=== PATIENT | female | born 1990 | race African-American/Black ===

== ENCOUNTER 2018-02-10 18:42 | Emergency (ER) | payer SELFPAY ==
[2018-02-10 18:43] VITALS: BP 136/79; PULSE 99; RESP 17; TEMP 36.7; O2SAT 99; BMI 19.3
--- NOTE | 2018-02-10 19:01 | ED.VISSUMM ---
- ER Visit Summary Date of Service: 02/10/18 Chief Complaint: Headache History of Present Illness: The patient is a 27 F who has had 3 days of a headache. She states it has been intermittent. She describes as sharp and dull in the middle of her head. Nothing makes it better or worse. She has nausea without vomiting. She states that she has numbness in the right arm. She states that her vision is blurry. Tried Excedrin without any relief. Denies any history of migraines in the past. No direct trauma or fall. Physical Examination: Vital signs reviewed. HEENT exam unremarkable. Heart is regular rate and rhythm without murmurs. Lungs are clear to auscultation. Abdomen is soft and nontender. Extremities reveal no edema. Skin exam normal. Neurologic exam shows some subjective paresthesias on the right side. Her strength is normal. Test Results: None performed Emergency Department Course and Treatment: Patient was given IV fluids, Compazine, Benadryl and Toradol. She feels much better. Resolution of all symptoms. I do not feel any imaging is necessary and educated the patient as to why she does not need those. She will be discharged with Toradol. She will follow up with her PCP Treatment Plan: [] Disposition: Discharge Impression: Headache This note was generated with [employer] dictation software. It may contain incorrect words, spelling, and punctuation that were not noted in review of the chart prior to signing ED Disposition - Plan for ED Patient: Chief Complaint: Headache Referrals: Care Physician,No Primary [Primary Care Provider] -
[2018-02-10] MEDS: proCHLORPERazine 10 MG/2 ML Vial IV (19:15)
[2018-02-10] MEDS: DiphenhydrAMINE 50 MG/ML Syringe 25 MG IV (19:15)
[2018-02-10] MEDS: 0.9% Normal Saline 1,000 ML 999 ML IV (19:15)
[2018-02-10] MEDS: Ketorolac 30 MG/ML Syringe IV (19:15)
--- NOTE | 2018-02-10 19:53 | ED.DEP ---
ED Disposition - Plan for ED Patient: Disposition: Home or Assisted Living Chief Complaint: Headache Instructions: ED Headache Migraine Prescriptions: Ketorolac [Toradol] 10 mg PO TID PRN PRN #15 tab PRN Reason: Headache Referrals: Care Physician,No Primary [Primary Care Provider] -
[2018-02-10 20:02] VITALS: BP 117/74; PULSE 77; RESP 16
== END 2018-02-10 20:03 | disposition home or self-care (01) ==
PROVIDERS: Emergency Provider Emergency Medicine
DX: R51 Headache (principal); R11.0 Nausea; R20.0 Anesthesia of skin; H53.8 Other visual disturbances; Z72.0 Tobacco use
CPT/HCPCS: 96361; 96374; 96375; 99283; J7030; A4216

== ENCOUNTER → 2018-05-19 13:00 | Outpatient (CLI) | payer MEDICAID, SELFPAY ==
[2018-05-19 20:12] LABS: Chlamydia Trachomatis by PCR Negative (Negative); Neisserai gonorrhoeae by PCR Negative (Negative); Probe Check PASS; Sample Adequacy Control PASS; Specimen Processing Control PASS
[2018-05-26 12:15] LABS: HPV APTIMA, High Risk Negative (Negative)
== END ==
PROVIDERS: Referring Provider Obstetrics & Gynecology; Visit Provider Obstetrics & Gynecology
DX: Z12.4 Encounter for screening for malignant neoplasm of cervix (principal); Z11.3 Encounter for screening for infections with a predominantly sexual mode of transmission
CPT/HCPCS: 87491; 87591; 88175; G0145

== ENCOUNTER → 2018-07-14 09:54 | Outpatient (CLI) | payer MEDICAID, SELFPAY ==
[2018-07-14 11:49] LABS: Absolute Lymphocyte Count 1.15 X10^3/ul (0.83-4.51); Eosinophil# 0.05 X10^3/uL; Eosinophils% 0.9 % (0-5); Hemoglobin 10.7 g/dl (12.0-15.0); Lymphocyte # 1.15 X10^3/ul (4.0); Lymphocyte % 20.3 % (19-41); Mean Corp Hgb Conc 32.4 g/gl (32-36); Mean Corpuscular Hgb 30.8 pg (27.0-32.0); Mean Corpuscular Volume 95.1 fL (81-99); Mean Platelet Vol. 10.1 fl (6.2-12.0); Monocyte# 0.51 X10^3/uL; Neutrophil # 3.95 X10^3/uL (2.7-7.7); Neutrophil % 69.6 % (47-70); Platelet Count 199 K/mm3 (150-450); RBC Distribution Width CV 12.9 % (11.6-14.6); RBC Distribution Width SD 44.5 fl (35.1-43.9); Red Blood Count 3.47 M/mm3 (4.2-5.4); White Blood Count 5.7 K/mm3 (4.4-11.0)
[2018-07-14 11:53] LABS: Color, Urine Yellow (Yellow); Glucose, Dipstick Normal (Normal); Ketone-Dipstick Negative (Negative); Leukocyte Esterase-Dipstick Negative /ul (Negative); Nitrite-Dipstick Negative (Negative); Occult Blood-Urine Negative /ul (Negative); Protein-Dipstick Negative (Negative); Specific Gravity, Urine 1.015 (1.002-1.030); Urine Bilirubin Dipstick Negative (Negative); Urine Clarity Clear (Clear); Urine Urobilinogen Normal (Normal)
[2018-07-14 11:54] LABS: POSITIVE COUNT NO; POSITIVE DIFFERENTIAL NO; POSITIVE MORPHOLOGY NO
[2018-07-14 12:29] LABS: Amphetamine Urine VISTA NEGATIVE (<1000 ng/mL); Barbiturate Urine VISTA NEGATIVE (< 200 ng/mL); Benzodiazepine Urine VISTA NEGATIVE (< 200 ng/mL); Cocaine Urine VISTA NEGATIVE (< 300 ng/mL); Ecstacy Urine VISTA NEGATIVE (< 500 ng/mL); Methadone Urine VISTA NEGATIVE (< 300 ng/mL); PCP Urine VISTA NEGATIVE (< 25 ng/mL); THC Urine VISTA NEGATIVE (< 50 ng/mL); Vista UDS pH Range 7
[2018-07-14 12:53] LABS: HIV - WCH Non-Reactive (Nonreactive); Rubella IgG 286.5 IU/mL
[2018-07-15 03:23] LABS: Prenatal RPR NONREACTIVE (NONREACTIVE)
[2018-07-15 11:04] LABS: HEPATITIS B SURFACE AG Negative (Negative); Hep C Antibodies 0.2 s/co ratio (0.0-0.9)
== END ==
PROVIDERS: Visit Provider Obstetrics & Gynecology
DX: Z34.82 Encounter for supervision of other normal pregnancy, second trimester (principal)
CPT/HCPCS: 36415; 80307; 81002; 84443; 85025; 86703; 86762; 86803; 87340

== ENCOUNTER → 2018-09-27 13:59 | Outpatient (CLI) | payer MEDICAID, SELFPAY | PROVIDERS: Visit Provider Obstetrics & Gynecology | DX: J02.9 Acute pharyngitis, unspecified (principal) | CPT/HCPCS: 87880 ==

== ENCOUNTER → 2018-10-24 | Outpatient (CLI) | payer MEDICAID, SELFPAY ==
[2018-10-24 15:50] LABS: Hematocrit 31.2 % (37-47); Hemoglobin 10.1 g/dl (12.0-15.0); Mean Corp Hgb Conc 32.4 g/gl (32-36); Mean Corpuscular Hgb 29.9 pg (27.0-32.0); Mean Corpuscular Volume 92.3 fL (81-99); Mean Platelet Vol. 10.8 fl (6.2-12.0); Platelet Count 187 K/mm3 (150-450); RBC Distribution Width CV 13.2 % (11.6-14.6); RBC Distribution Width SD 43.5 fl (35.1-43.9); Red Blood Count 3.38 M/mm3 (4.2-5.4); Scan Indicated on CBC? Y/N NO; White Blood Count 7.6 K/mm3 (4.4-11.0)
[2018-10-24 16:02] LABS: Glucose Challenge Gest 1H 50g 125 mg/dL (70-140)
== END | disposition home or self-care (01) ==
LOC: WOBLAB 13:10
PROVIDERS: Visit Provider Obstetrics & Gynecology
DX: Z34.83 Encounter for supervision of other normal pregnancy, third trimester (principal)
CPT/HCPCS: 36415; 82950; 85027

== ENCOUNTER → 2018-11-17 13:45 | Outpatient (CLI) | payer MEDICAID, SELFPAY ==
[2018-11-19 08:39] LABS: HSV 2 IgG < 0.91 index (0.00-0.90)
== END ==
PROVIDERS: Visit Provider Obstetrics & Gynecology
DX: Z11.3 Encounter for screening for infections with a predominantly sexual mode of transmission (principal)
CPT/HCPCS: 36415; 86695; 86696

== ENCOUNTER → 2018-12-19 | Outpatient (CLI) | payer MEDICAID, SELFPAY | END | disposition home or self-care (01) | LOC: LABSPEC 15:13 | PROVIDERS: Visit Provider Obstetrics & Gynecology | DX: Z36.85 Encounter for antenatal screening for Streptococcus B (principal) | CPT/HCPCS: 87081 ==

== ENCOUNTER 2018-12-26 16:18 | Inpatient (IN) | payer MEDICAID, SELFPAY ==
[2018-12-26 12:49] VITALS: BMI 23.2
[2018-12-26] MEDS: Lactated Ringers 1,000 ML 50 ML IV ×3 (16:40→21:03)
[2018-12-26 16:55] LABS: Absolute Lymphocyte Count 1.76 X10^3/ul (0.83-4.51); Absolute Neutrophil Count 9.2 X10^3/uL (2.0-7.7); Basophil# 0.01 X10^3/uL; Basophil% 0.1 % (0-1); Eosinophil# 0.03 X10^3/uL; Eosinophils% 0.2 % (0-5); Hematocrit 34.5 % (37-47); Hemoglobin 11.2 g/dl (12.0-15.0); Lymphocyte # 1.76 X10^3/ul (4.0); Lymphocyte % 14.3 % (19-41); Mean Corp Hgb Conc 32.5 g/gl (32-36); Mean Corpuscular Hgb 28.9 pg (27.0-32.0); Mean Corpuscular Volume 88.9 fL (81-99); Mean Platelet Vol. 10.1 fl (6.2-12.0); Monocyte# 1.23 X10^3/uL; Neutrophil # 9.24 X10^3/uL (2.7-7.7); Neutrophil % 75.1 % (47-70); RBC Distribution Width CV 14.4 % (11.6-14.6); RBC Distribution Width SD 46.6 fl (35.1-43.9); Red Blood Count 3.88 M/mm3 (4.2-5.4); White Blood Count 12.3 K/mm3 (4.4-11.0)
[2018-12-26 16:56] LABS: POSITIVE COUNT NO; POSITIVE DIFFERENTIAL NO; POSITIVE MORPHOLOGY NO; Platelet Count 196 K/mm3 (150-450)
[2018-12-26] MEDS: fentaNYL-bupivacaine (epidural) 100 ML BAG EPIDURAL ×2 (17:16→21:47)
[2018-12-26] MEDS: Acetaminophen 325 MG Tablet PO (21:18)
--- NOTE | 2018-12-26 22:04 | OB.TRI.HP_ITS ---
History of Present Illness Was patient seen by the physician?: Yes Reason For Visit: R/O LABOR Date of Service: 12/26/18 Final ELENO: 01/12/19 Final ELENO Source: US <20 weeks Gestational age: 37 Weeks and 4 Days History of Present Illness: 37+ week intrauterine presents for rule out labor. Patient having contractions several hours today. Was seen by maternal medicine earlier in the day for an ultrasound more biophysical profile was 8 out of 8. Allergies No Known Allergies Allergy (Verified 12/26/18 12:45) Laboratory Studies: Laboratory Tests 12/26/18 12/26/18 Range/Units 16:35 16:35 WBC 12.3 H (4.4-11.0) K/mm3 RBC 3.88 L (4.2-5.4) M/mm3 Hgb 11.2 L (12.0-15.0) g/dl Hct 34.5 L (37-47) % MCV 88.9 (81-99) fL MCH 28.9 (27.0-32.0) pg MCHC 32.5 (32-36) g/gl RDW 14.4 (11.6-14.6) % RDW Differential 46.6 H (35.1-43.9) fl Plt Count 196 (150-450) K/mm3 MPV 10.1 (6.2-12.0) fl Immature Gran % (Auto) 0.300 (0.0-0.9) % Neut % (Auto) 75.1 H (47-70) % Lymph % (Auto) 14.3 L (19-41) % Vermillion % (Auto) 10.0 (0-10) % Eos % (Auto) 0.2 (0-5) % Baso % (Auto) 0.1 (0-1) % Absolute Neuts (auto) 9.2 H (2.0-7.7) X10^3/uL Absolute Lymphs (auto) 1.76 (0.83-4.51) X10^3/ul Total Counted Not Reportable Blood Type A POSITIVE Antibody Screen NEGATIVE NST - FHR Rate Baby A NST Reactive:: Non-Reactive Uterine Activity:: Contractions noted but no cervical change after monitoring. Biophysical profile 8 out of 8 earlier in the day. Patient smoked just prior to arrival to labor and delivery. Impression/Plan 37+ week intrauterine with false labor. She was subsequently noted there to change her cervix from 1 cm to 4 cm and was admitted in labor.
--- NOTE | 2018-12-26 23:45 | PCM.OPRPT ---
Vaginal Delivery Maternal Presentation: Active Labor Amniotic Membrane Rupture Type: Artificial Amniotic Fluid Description: Thick meconium Final ELENO: 01/12/19 Final ELENO Source: US <20 weeks Gestational age: 37 Weeks and 5 Days doctor who attended delivery (if requested by OB): Yuly Stacy MSF Date of Procedure: 12/27/18 Pre-Operative Diagnosis: IUP Post-Operative Diagnosis: IUP Surgery/ Procedure Performed: Spontaneous Vaginal Delivery Type of Anesthesia: Epidural Description of Procedure: Spontaneous vaginal delivery of a viable female with Apgars of 8/9 from an occiput anterior presentation with thick meconium stained fluid and normal three-vessel placenta. No episiotomy or laceration. Sponges okay. Delivery physician: Gurpreet Park MD. Presentation: Vertex Placental Delivery Description: Spontaneous Placenta Disposition: [facility] Cord Vessel Description: 3 Vessels Cord Gases drawn per routine: ABG, VBG Cord Entanglement: None Estimated Blood Loss: 250 cc Infant A gender: Female (1 minute): 8 (5 minute): 9 Episiotomy Description: None Laceration: None Medications given after delivery: IV Pitocin Complications: None
--- NOTE | 2018-12-26 23:49 | DCINST_ITS ---
Discharge Diet: No Restrictions Discharge Activity: May Shower, May Take a Tub Bath May resume sexual activity in: 4-6 weeks Additional Activity Instructions:: Nothing in the vagina for 4-6 weeks. You may return to work/school in 6 weeks. Call your doctor if you observe: Fever of 101 or Higher, Inability to urinate, Inability to have a bowel movement, Using more than one pad per hour Additional Instructions: If you experience any of the following, contact your healthcare provider. * Bleeding that soaks a pad every hour for 2 hours * Unrelieved incision or abdominal pain * Swelling, redness, discharge or bleeding from your incision or episiotomy site * Your incision begins to separate * Problems urinating (including inability to urinate or burning while urinating). * Visual changes * Severe headache * Flu-like symptoms * Pain or redness in one of both of your breasts * Pain, warmth, tenderness or swelling in your legs, especially the calf area * Frequent nausea and vomiting * Symptoms of depression or anxiety If you experience any of the following, call 911 or go to the nearest Emergency Room. * Chest pain * Problems breathing * Seizure activity * Partial or complete paralysis of a body part, slurred speech, weakness or drooping of the face, or a sudden inability to walk or hold your balance Allergies/Adverse Reactions: Allergies No Known Allergies Allergy (Verified 12/26/18 12:45) Medications to take at Discharge Acetaminophen [Tylenol Extra Strength] 12/26/18 Pnv No.103/Folic/Om3s/Fish Oil [ Gummies] 1 each PO 12/26/18 Please Follow Up With: Gurpreet Park MD - [phone] When: Call to make an appointment with your doctor in 6 weeks. Primary Care Physician: Care Physician,No Primary [Primary Care Provider] - Test Results: Test results from this visit will be discussed in further detail at your follow- up appointment, if applicable.
--- NOTE | 2018-12-26 23:49 | PCM.DCVAG ---
Discharge Diet: No Restrictions Discharge Activity: May Shower, May Take a Tub Bath May resume sexual activity in: 4-6 weeks Additional Activity Instructions:: Nothing in the vagina for 4-6 weeks. You may return to work/school in 6 weeks. Call your doctor if you observe: Fever of 101 or Higher, Inability to urinate, Inability to have a bowel movement, Using more than one pad per hour Additional Instructions: If you experience any of the following, contact your healthcare provider. Bleeding that soaks a pad every hour for 2 hours Unrelieved incision or abdominal pain Swelling, redness, discharge or bleeding from your incision or episiotomy site Your incision begins to separate Problems urinating (including inability to urinate or burning while urinating). Visual changes Severe headache Flu-like symptoms Pain or redness in one of both of your breasts Pain, warmth, tenderness or swelling in your legs, especially the calf area Frequent nausea and vomiting Symptoms of depression or anxiety If you experience any of the following, call 911 or go to the nearest Emergency Room. Chest pain Problems breathing Seizure activity Partial or complete paralysis of a body part, slurred speech, weakness or drooping of the face, or a sudden inability to walk or hold your balance Allergies/Adverse Reactions: Allergies No Known Allergies Allergy (Verified 12/26/18 12:45) Medications to take at Discharge Acetaminophen [Tylenol Extra Strength] 12/26/18 Pnv No.103/Folic/Om3s/Fish Oil [ Gummies] 1 each PO 12/26/18 Please Follow Up With: Gurpreet Park MD - [phone] When: Call to make an appointment with your doctor in 6 weeks. Primary Care Physician: Care Physician,No Primary [Primary Care Provider] - Test Results: Test results from this visit will be discussed in further detail at your follow-up appointment, if applicable.
--- NOTE | 2018-12-27 | PLAC_PTH ---
PATIENT: TAMARA NO LOC: WP U#:[id number] AGE/SX: 28/F ROOM: WP004 RE12/26/[address]: Dr. Gurpreet Park MD : 1990 BED: 1 DIS: 12/29/2018 SPEC #: [id number] RECD: 12/27/18 05:00 STATUS: TOMMY REScott #: [id number] ALEE: 12/27/18 00:[address]: Gurpreet Park DEPT: SURGICAL PATHOLOGY RECD BY: Claus Lane ENTERED: 12/27/18 10:45 SP TYPE: PLACENTA OTHR DR: No Primary Care Phys Tissues: Placenta, NOS Procedures: Surgery Specimen Level V HEADER OPERATION: Vaginal delivery PRE-OP DIAGNOSIS: Placenta showed ? cysts on ultrasound TISSUE SUBMITTED: Placenta MICROSCOPIC DIAGNOSIS Placenta: Placental disc - third trimester placenta (551 gm). Focal acute vasculitis of subamniotic blood vessels. Membranes - acute chorioamnionitis. Pigment laden macrophages consistent with meconium staining. Umbilical cord - three blood vessels and acute funisitis. SJ:darius 12/29/18 COMMENT No obvious cyst is noted in the placenta. MICROSCOPIC DESCRIPTION Slides are reviewed. GROSS DESCRIPTION SPECIMEN: PLACENTA / CLINICAL INFORMATION: A. Weight: 2.467 kg B. Gestational Age: 37 weeks C. Sex: Female PLACENTAL WEIGHT (POST FIXATION): 551 gm PLACENTAL DIMENSIONS: 18 x 17 x 3 cm PLACENTAL SHAPE: Usual ovoid PLACENTAL WEIGHT FOR GESTATIONAL AGE: Within 10-99th percentile MEMBRANES - Present A. Insertion: Marginal B. Site of rupture from edge: 5 cm from edge of placental disc C. Color of membrane: Aguilar-greenish consistent with meconium staining D. Abnormalities: None UMBILICAL CORD - Present A. Color: Aguilar-patrick B. Insertion: Marginal C. Length: 32 cm D. Diameter: 1-2 cm E. Number of vessels: Three F. Abnormalities: Umbilical surface is greenish and consistent with meconium staining. PLACENTAL DISC - Present A. Color of surface: Aguilar-greenish consistent with meconium staining B. surface abnormalities: None C. Maternal cotyledons: Intact with minimal tears D. Attached retro placental clot: No clot E. Cut surface: Dark red and spongy F. Lesions: None G. Separate clot: Absent SECTIONS SUBMITTED: 1. Membrane roll 2. Cord, maternal end 3. Cord, end 4. Placental disc, and maternal surfaces 5. Placental disc, and maternal surfaces 6. Placental disc, and maternal surfaces SJ:darius 12/28/18 TC:2 CPT: 01050
[2018-12-27] MEDS: Oxytocin 30 units/NS 500 ml 30 UNITS/500 ML IV.SOLN 334 UNITS IV (00:08)
[2018-12-27] MEDS: Oxytocin 30 units/NS 500 ml 30 UNITS/500 ML IV.SOLN 167 UNITS IV (00:39)
--- NOTE | 2018-12-27 02:03 | NURSING ---
No fluid noted at time of AROM.
[2018-12-27] MEDS: Ibuprofen 600 MG Tablet PO ×3 (02:56→15:36)
[2018-12-27 04:30] VITALS: BP 117/55; PULSE 69; RESP 18; TEMP 36; O2SAT 99
[2018-12-27] MEDS: oxyCODONE 5 MG Tablet PO ×3 (05:56→20:56)
[2018-12-27 08:09] VITALS: BP 118/47; PULSE 74; RESP 18; TEMP 36.2; O2SAT 100
[2018-12-27] MEDS: Acetaminophen 500 MG Tablet 1000 MG PO ×2 (08:11→17:01)
[2018-12-27 11:46] VITALS: BP 125/63; PULSE 81; RESP 16; TEMP 36.2; O2SAT 99
[2018-12-27 15:38] VITALS: BP 121/70; PULSE 78; RESP 16; TEMP 36.5; O2SAT 100
[2018-12-27 20:35] VITALS: BP 126/80; PULSE 82; RESP 18; TEMP 36.3
[2018-12-28 00:52] VITALS: BP 120/70; PULSE 74; RESP 18; TEMP 36.2
[2018-12-28 04:45] VITALS: BP 112/72; PULSE 61; RESP 18; TEMP 36.2
[2018-12-28] MEDS: Ibuprofen 600 MG Tablet PO ×3 (06:46→22:11)
--- NOTE | 2018-12-28 08:15 | PCM.PN.OB ---
Subjective: Patient without complaints. Minimal vaginal bleeding. Some cramping relieved with Motrin. Breast-feeding going well. Baby will likely need to stay until tomorrow so patient wants to stay until tomorrow. - Physical Exam Vital Signs Temp Pulse Resp BP Pulse Ox 97.2 F L 61 18 112/72 100 12/28/18 04:45 12/28/18 04:45 12/28/18 04:45 12/28/18 04:45 12/27/18 15:38 Oxygen Delivery Method Room Air Weight: 146 lb Body Mass Index (BMI) 23.2 Intake and Output for Last 24 Hours 12/26/18 12/27/18 12/28/18 23:59 23:59 23:59 Intake Total 3331 / 3331 Output Total 2100 / 2100 Balance 1231 / 1231 Medical Necessity - Tobacco Use Smoking Status: Current every day smoker Assessment/Plan Doing well day #1 status post routine spontaneous vaginal delivery. Continuing present care.
[2018-12-28 08:25] VITALS: BP 113/75; PULSE 81; RESP 16; TEMP 36.2
[2018-12-28] MEDS: Acetaminophen 500 MG Tablet 1000 MG PO ×2 (08:55→17:27)
[2018-12-28] MEDS: Senna/Docusate Sodium 1 Tablet PO (08:55)
--- NOTE | 2018-12-28 09:38 | NURSING ---
Pt states perineum feels very swollen, however no edema noted by this RN on assessment. Encouraged continued use of ice packs and tucks. Pt requesting tylenol now. Plan to medicate with antiinflammatory if tylenol not effective.
[2018-12-28 14:00] VITALS: BP 127/87; PULSE 83; RESP 18; TEMP 36.4
[2018-12-28 19:30] VITALS: BP 130/66; PULSE 69; RESP 18; TEMP 36.6; O2SAT 100
[2018-12-29 02:05] VITALS: BP 126/76; PULSE 62; RESP 18; TEMP 36.4
[2018-12-29] MEDS: Ibuprofen 600 MG Tablet PO ×2 (04:30→12:19)
[2018-12-29] MEDS: Acetaminophen 500 MG Tablet 1000 MG PO (08:49)
[2018-12-29 08:51] VITALS: BP 141/89; PULSE 69; RESP 16; TEMP 36.3; O2SAT 100
--- NOTE | 2018-12-29 08:56 | NURSING ---
mother had been out to smoke just prior to obtaining vitals. will continue to monitor.
--- NOTE | 2018-12-29 10:13 | PCM.PN.OB ---
Subjective: PPD#2 Doing well. States some soreness at lower back where epidural was placed. Asking if this is normal. Yes and reviewed meds to take, heating pad. Bottle feeding. Baby is going to stay: watching her glucose, wt gain, breathing and body temps as she is small. 37 wks. - Physical Exam General: Alert, Oriented x3, Cooperative, No apparent distress HEENT: Atraumatic Oral: Moist Mucosa Neck: Supple Neurological: Cranial nerves II-XII grossly intact Psych/Mental Status: Normal Affect Vital Signs Temp Pulse Resp BP Pulse Ox 97.3 F L 69 16 141/89 H 100 12/29/18 08:51 12/29/18 08:51 12/29/18 08:51 12/29/18 08:51 12/29/18 08:51 Oxygen Delivery Method Room Air Weight: 66.224 kg Body Mass Index (BMI) 23.2 Intake and Output for Last 24 Hours 12/27/18 12/28/18 12/29/18 23:59 23:59 23:59 Intake Total 3331 / 3331 Output Total 2100 / 2100 Balance 1231 / 1231 Medical Necessity - Tobacco Use Smoking Status: Current every day smoker Assessment/Plan PPD#2 Stable pp. Dischg home today Eligible for hotel as baby is to stay. RTO in 6 wk for pp check with Rubens Obrien sooner.
[2018-12-29 12:48] VITALS: BP 129/82; PULSE 78; RESP 16; TEMP 36.6; O2SAT 99
[2018-12-29 14:54] LABS: Pathology Specimen OB SEE PATHOLOGY REPORT
--- NOTE | 2018-12-29 15:36 | CASEMGMT ---
Social Work Assessment Labor and Delivery Unit Date of Referral: 12/27/2018; 12/28/2018 Time of Referral: 0250; 1844 Referred By: Dr. Park Date of Intervention: 12/29/2018 Time of Intervention: 1100 Reason for Referral: 1. maternal history of depression and anxiety. 2. PHQ9 score of 9 History obtained from: Medical records and patient/mother of baby (MOB) Mi Hu. Household composition: MOB, father of baby (FOB) Clifton Hu, and their 4 older children. MOB reports home situation is safe and adequate. Patient's parent/guardian status: MOB is 29 years old female and FOB is 29 year old male, for 8 years though have been together for longer. MOB and FOB now have 5 children since the of baby this admission. Minor children include: Jona Hu - age 11 (born 12.11.2007) Yunier Hu - age 10 [place] - age 8 (born 10.19.2010) Clifton Hu - age 5 (born [birth year].2013) baby yesy Hu born on 12.27.2019. Medical History: MOB with care starting at 7 weeks gestation. unplanned but accepted per MOB. MOB is G6, P4 to 5 with one first trimester loss in December of 2017 noted in record. Baby David born at 37.5 weeks gestation, weighed 2467 grams or 5 pounds 7 ounces. Apgars 8 and 9 at 1 and 5 minutes of life. Educational Status: MOB completed through the 10th grade. MOB reports to be able to read, write, and to understand what is read. Denies learning comprehension issues. Financial Status: FOB works in [employer] at this time and per MOB the FOB will be getting back into car sales soon. MOB does not work outside of the home. Infant Supplies: MOB reports to have needed baby supplies including a bassinett, crib, formula, bottles, clothing, diapers, and wipes. Childcare/Caregiver(s): MOB will be primary caregiver though reports FOB will also help out when home. Transportation: Parents drive but MOB reports the family vehicle just go repossessed. Transportation is limited at this time. MOB reports to have some family who can help out with transportation. MOB reports just learned that can get rides through insurance. Programs/Agencies Involved: MOB has [facility] med[facility] and food stamps through [facility]. MOB has WIC. MOB reports may have had [facility] or Head start for son, but not currently involved. MOB reports history of counseling years ago, but nothing current. Children Services/Legal Issues: Denies any past or present cases with children services. No reports of any legal issues. Behavioral Health Issues: Mental Health History: MOB with history of depression and anxiety and was prescribed Prozac by OBGYN in May. MOB reports took this medication for a short time and then stopped on own. MOB reports then took one pill a couple of days prior to delivery due to feeling down. MOB reports likely will not restart the Prozac at home going. MOB endorses having depression after first and second children were born. MOB reports was young, did not have a lot of help from FOB at that point (who was also young). MOB reports was on medications and went to counseling. MOB denies every being suicidal or attempting to kill self. MOB reports to have too much to live for, including MOB's children. PHQ9: MOB endorsed feeling little interest in doing things, feeling tired, and feeling bad about self more than half the days over the last 2 weeks, and feeling down or depressed daily. MOB denies any thoughts of dying or that life would be better off . Also endorsed that symptoms have not created difficulty in MOB getting daily tasks done. MOB reports this has been harder as MOB thought was done having babies, that children were to the point that MOB could start to focus on self needs and wants, so was hard for MOB to know that would be starting all over again with a . MOB reports the feeling bad about self was in relation to MOB refection on life, having children young and what has done with live so far. MOB reports to be accepting of the baby, to be happy to have the baby and to love the baby despite some of these sad feelings MOB has experienced. Coping: reports to love to fish, to be outdoors, and to talk to FOB. Substance Use History: MOB reports to drink alcohol, but denies use of alcohol during . MOB made comment, while laughing, that when gets out of the hospital will be having some alcohol. MOB denies any abuse of illicit substances. MOB denies history of heroin, cocaine, meth, or marijuana. MOB denies abuse of prescribed opiates during this . Reports that took medications as needed and sporadically during the . MOB reports could take a couple of pills and then go a few weeks without any need for pain mediations. MOB reports last use of any prescribe opiate was the day prior to delivery. MOB reports was prescribed pain medicine in the June 2018/July 2018 time frame. reports prescriptions from a dentist at local [facility] and from Dr. Park. this automobile service writer able to verify with OBGYN office that OBGYN did prescribe a short course of Percocet in May 2018 for severe pain related to dental issues. In collaboration with RN and mobile paint specialist, this automobile service writer able to find in the medical record that MOB was prescribed Tylenol with Codeine (May 2018) and [place] (June 2018) by Dr. Diogenes Minor a local dentist that does works at the [facility]. Also noted, MOB had a prescription of Tylenol wit Codeine in November [address] Donnie Rhodes, another local dentist. MOB endorses use of 1/2 to 1 pack of cigarettes per day. MOB drank 5 cups of Folgers Dark roast coffee a day in this . Drug Screens: Positive maternal drug screen on 07.14.2018 for opiates, which MOB endorses from prescribed pain medication. No further testing noted for MOB. Baby's urine negative at delivery, including Suboxone screen. Meconium is pending. [place]: baby is receiving [place] screening per protocol. Scores are starting to escalate date of assessment to 8 with previous scores between 0-4. Family/Social Stressors: Unexpected and unplanned , with some mood issues during this . MOB reports the family vehicle was recently repossessed. MOB dealing with dental pain throughout which led to MOB taking opiate pain medicines this . MOB reports because of no one wanted to pull the tooth. Support Systems: MOB reports FOB, FOB's mother, MOB sister and [id number] are good supports for practical help with FOB being MOB's main emotional support. MOB reports to feel that support is actuate at this time as FOB will be home more and able to help, as well as is more comfortable with helping to care for a baby at this time in his life. Depression/Shaken Baby/Safe Sleeping : MOB reports awareness of shaken baby syndrome and prevention. MOB reports that it is okay to set baby down, walk away and take a deep breath before trying again with the baby. MOB did make comment that it is okay to let baby cry for a half hour, 45 minutes, or even an hour if needed, that a baby will not from crying. This automobile service writer broached with MOB that it is important to make sure baby is fed and cared for. MOB reports agreement. ASSESSMENT: MOB pleasant, friendly and cooperative with social work administrator, willing to talk and engage in conversation. MOB held good eye contact and was nondefensive. MOB reports to love the baby, as well as is worried about the baby going through withdrawal from nicotine. MOB reports that only took pain medications as needed and not even daily, that could go a couple of weeks without using any pain medicine. MOB reports last use of any pain pill was the day prior to delivery. Baby's drug screen was negative at delivery. MOB reports that has needed baby supplies, to have adequate support and also to have people that can help with transportation. MOB reports coping skills to use when feeling depressed, and reports preference to manage depression on own, without medication or counseling. MOB reports if symptoms start to impair ability to care for self or children this would be the time that MOB would picking tech the phone and call [facility]. Talked with MOB about the [place] law and reporting infants who are substance exposed in utero. Informed MOB that as MOB is reporting use of only prescribed opiates, uncertain whether this would enough for children services to decide to come and talk with family about at this time, but that at some point there will likely have to be a notification to children services about inutero exposure. MOB accepted this information without issue. Updated RN and mobile paint specialist. PLAN: MOB is discharging today and will stay in a courtesy room at [facility] while baby received [place] monitoring for a minimum of 3 days, up to 7 days. Will continue to follow family while baby is still in the hospital. MOB has been given community resources list for [facility], including optins for counseling, and a depression packet. -SID Deras, GEAR TOOTH GRINDING MACHINE OPERATOR
--- NOTE | 2019-01-02 17:06 | NURSING ---
Follow up phone call made and the number is incorrect. Wayne DELUCA
== END 2018-12-29 13:00 | disposition home or self-care (01) | DRG 560 ==
LOC: WP 16:24
PROVIDERS: Pediatrics; Admitting Provider Obstetrics & Gynecology; Referring Provider Obstetrics & Gynecology; Visit Provider Obstetrics & Gynecology
DX: O77.0 Labor and delivery complicated by meconium in amniotic fluid (principal); O99.334 Smoking (tobacco) complicating childbirth; F17.200 Nicotine dependence, unspecified, uncomplicated; Z3A.37 37 weeks gestation of pregnancy; Z37.0 Single live birth
CPT/HCPCS: 59025; 59050; 85025; 86850; 86900; 88307; 99218; J7120; G0378; J2405

== ENCOUNTER 2019-03-04 19:59 | Emergency (ER) | payer MEDICAID, SELFPAY ==
[2019-03-04 20:00] VITALS: BP 122/88; PULSE 77; RESP 16; TEMP 36.2; O2SAT 100; BMI 21.9
--- NOTE | 2019-03-04 20:28 | ED.DCSUM_ITS ---
- ER Visit Summary Date of Service: 03/04/19 Chief Complaint: Dental pain History of Present Illness: The patient is a 28 F who goes to [facility] in [place]. She reports she has an appointment in 5 days. She reports she has pain in her left mandibular second molar that began 3 days ago. The sharp pain is 10 to 10 hours and out of 10 currently. She taken Tylenol and ibuprofen without relief. She also reports that she is been on amoxicillin for the past 2 days without relief. Physical Examination: Vitals: Stable. Afebrile. Mouth: No trismus. No edema of the floor of the mouth. Pain with percussion of left mandibular second molar. There is a large filling in place. The anterolateral corner of the tooth is avulsed off. There is no obvious exposed root. There is no focal abscess. General: A&O x 3. NAD. Cardiovascular exam: Regular rate and rhythm, no murmur, rub or gallop. Respiratory exam: Clear to auscultation bilaterally. No wheezes or stridor. Abdominal exam: Soft, nontender, nondistended, normal bowel sounds. No peritoneal signs. Extremity: No clubbing, cyanosis, or edema. Emergency Department Course and Treatment: An [facility] report was obtained which she reports she had one prescription for opiates this year. She was treated naproxen and clindamycin here. Treatment Plan: Patient will be discharged naproxen, Steward, and clindamycin. Instructed to follow-up with her dentist as soon as possible. Return to the emergency department for any worsening symptoms. Disposition: To home in improved and stable condition. Impression: 1. Dental pain. This note was generated with [employer] dictation software. It may contain incorrect words, spelling, and punctuation that were not noted in review of the chart prior to signing ED Disposition - Plan for ED Patient: Disposition: Home or Assisted Living Instructions: Dental Pain Prescriptions: Clindamycin [Cleocin] 300 mg PO 4X/DAY #80 cap Prescription Printed Naproxen [Naprosyn] 500 mg PO BID #14 tab Prescription Printed Hydrocodone Bitart/Apap 5-325 [Steward 5MG-325MG] 1 tab PO Q4H PRN PRN 2 Days #10 tab PRN Reason: Pain Prescription Printed Referrals: Dentist,Your [STAFF PHYSICIAN] - As soon as possible
[2019-03-04] MEDS: Naproxen 250 MG Tablet 500 MG PO (20:43)
[2019-03-04] MEDS: Clindamycin HCl 150 MG Capsule 300 MG PO (20:43)
== END 2019-03-04 20:53 | disposition home or self-care (01) ==
LOC: ED 20:48
PROVIDERS: Emergency Provider Emergency Medicine
DX: K08.89 Other specified disorders of teeth and supporting structures (principal); Z72.0 Tobacco use
CPT/HCPCS: 99283